=== PATIENT | male | born 1945 | race Caucasian/White ===

== ENCOUNTER → 2016-09-16 | Outpatient (CLI) | payer MEDICARE, BC ==
[~2016-09-16] MED LIST: ASPI81TA3 PO; CLON-412 PO; CLON2TAB3 PO; DICL100G37 TOP; DOCU-144 PO; DULO60CA6 PO; ELET20TA PO; FINA5TAB4 PO; FIORINAL PO; FLO1 PO; GLUC500T11 PO; IPRA30SP7 NASAL; LEVE500S9 PO; MULT-860 PO; NASO17 NASAL; OCUVITE PO; OMEG1CAP2 PO; OMEP20CA16 PO; PRED10TA PO; PROC25SU PR; PROP10DR2 OP; PROP15DR BOTH EYES; RAME8TAB10 PO; RANI150T9 PO; RANI300T PO; RESV50CA PO; TAMS0.4C2 PO; [UNRECOGNIZED DRUG - CODE] PO
--- NOTE | 2016-09-16 17:14 | RADRPT ---
PROCEDURE: Limited x-ray of both lower extremities. CLINICAL INDICATION: Bilateral leg pain. TECHNIQUE: Single frontal view of both lower extremities was obtained from the hips to the calves. COMPARISON: Bilateral hip x-rays dated 02/07/2016. FINDINGS: There is a right hip total arthroplasty which appears satisfactory. The left hip is grossly normal. There are moderate degenerative changes of both knees with right worse than left. IMPRESSION: 1. Right hip total arthroplasty. 2. Moderate degenerative changes of both knees with right worse than left. RPTAT: QQ .Butch Avila MD, MD Date Time Electronically viewed and signed by .Butch Avila MD, on 09/16/2016 17:14 .R/
== END | disposition home or self-care (01) ==
LOC: HKI 10:10
PROVIDERS: ATTEND Orthopaedic Surgery
DX: Z01.818 Encounter for other preprocedural examination (principal); G40.909 Epilepsy, unspecified, not intractable, without status epilepticus; G43.909 Migraine, unspecified, not intractable, without status migrainosus; G47.30 Sleep apnea, unspecified; Z86.13 Personal history of malaria; Z95.0 Presence of cardiac pacemaker; M17.0 Bilateral primary osteoarthritis of knee; Z96.641 Presence of right artificial hip joint
CPT/HCPCS: 77073; G0463

== ENCOUNTER 2016-09-24 07:33 | Inpatient (IN) | payer MEDICARE, BC ==
[2016-09-16 13:10] VITALS: BMI 31.9
[~2016-09-24] VITALS: Ht 180.3 cm; Wt 103.0 kg
[2016-09-24] VITALS (24 sets, daily range): BP systolic 126–165; BP diastolic 65–83; PULSE 60–74; RESP 12–18; Ht 180.3 cm; Wt 103.0 kg
[~2016-09-24 07:33] MED LIST changes: -CLON-412 PO; +DEXAMETHASONE 4 MG/ML 1 ML INJ ONE; -FIORINAL PO; -MULT-860 PO; -OMEP20CA16 PO; -PROP10DR2 OP; -[UNRECOGNIZED DRUG - CODE] PO
[2016-09-24] MEDS ORDERED: CELECOXIB 400 MG PO X1 DOSE PO ONE (08:00)
[2016-09-24] MEDS ORDERED: TRANEXAMIC ACID in SOD CHLORIDE 0.9% 100 ML ON CALL TO OR IV ONE (08:00)
[2016-09-24] MEDS ORDERED: BUPIVACAINE LIPOSOME/PF 266 MG/20 ML VIAL INFIL ONE (08:00)
[2016-09-24] MEDS ORDERED: traMADOL 50 MG TAB X 1 DOSE PO ONE (08:00)
[2016-09-24] MEDS ORDERED: TRANEXAMIC ACID in SOD CHLORIDE 0.9% 100 ML FOR INTRAOP IVPB ONE (08:00)
[2016-09-24] MEDS ORDERED: PREGABALIN 300 MG PO X1 PO ONE (08:00)
[2016-09-24] MEDS ORDERED: PAIN COCKTAIL-CEFUROXIME IRR ONE ×7 (08:00)
[2016-09-24] MEDS ORDERED: oxyCODONE (CR) 10 MG TAB [oxyCONTIN] X1 DOSE PO ONE (08:00)
[2016-09-24] MEDS ORDERED: CEFAZOLIN 2GM/50 ML (PMX) 50 ML X1 BEFORE INCISION IVPB ONE (08:00)
[2016-09-24] MEDS: LACTATED RINGER'S 1,000 ML IV SCH ×4 (09:17→21:22)
--- NOTE | 2016-09-24 09:49 | HPN ---
Date/Time of Note Date/Time of Note DATE: 09/24/16 TIME: 09:49 Interval H&P Admission Note Pt. seen H&P reviewed: No system changes No changes from H&P on 09/23/16 by LINA Dudley MD September 24, 2016 09:49
[2016-09-24] MEDS ORDERED: CEFAZOLIN 1 GM INJ ONE (10:15)
[2016-09-24] MEDS ORDERED: FENTAnyl 50 MCG/ML VIAL ONE (10:16)
[2016-09-24] MEDS ORDERED: BACITRACIN 50000 UNITS INJ ONE (10:16)
[2016-09-24] MEDS ORDERED: METOCLOPRAMIDE 10 MG INJ ONE (10:16)
[2016-09-24] MEDS ORDERED: MIDAZOLAM 1 MG/ML 2 ML INJ ONE (10:16)
[2016-09-24] MEDS ORDERED: DEXAMETHASONE 4 MG/ML 1 ML INJ ONE (10:16)
[2016-09-24] MEDS ORDERED: ETOMIDATE 20 MG INJ ONE (10:39)
[2016-09-24] MEDS ORDERED: VANCOMYCIN 1 GM INJ ONE (10:41)
[2016-09-24] MEDS ORDERED: POLYMYXIN B 500000 UNIT INJ ONE (10:41)
[2016-09-24] MEDS ORDERED: HYDROmorphONE (0.2 MG/ML) 10ML SYG IV PRN ×3 (11:30)
[2016-09-24] MEDS ORDERED: MEPERIDINE 25 MG INJ IV PRN (11:30)
[2016-09-24] MEDS ORDERED: DIPHENHYDRAMINE 50 MG INJ IV PRN (11:30)
[2016-09-24] MEDS ORDERED: ONDANSETRON 4 MG INJ IV PRN ×2 (11:30→13:30)
[2016-09-24] MEDS ORDERED: METOCLOPRAMIDE 10 MG INJ IV PRN (11:30)
[2016-09-24] MEDS ORDERED: EXPAREL NOTE (BUPIVICAINE LIPOSOMAL) XX SCH (12:30)
[2016-09-24] MEDS ORDERED: EPHEDrine SULFATE 50 MG/5 ML SYG ONE (13:02)
--- NOTE | 2016-09-24 13:11 | OPR ---
Date/Time of Note Date/Time of Note DATE: 09/24/16 TIME: 13:01 Operative Report Free Text/Dictation Dictation [id number] Procedure Date: September 24, 2016 Preoperative Diagnosis Left Knee OA Postoperative Diagnosis Same Operation Performed Left TKA Surgeon: LINA SPANN MD elementary assistant principal: YADI RODRIGUEZ PA-C Anesthesia: general, spinal Anesthesiologist: DONTAE CISNEROS MD Tourniquet Time: 71 minutes Estimated Blood Loss: 10 - 50 ml's Specimens Bone and soft tissue Tubes/Drains Hemovac x 1 Complications: None Pt Condition Post Procedure: stable Disposition: PACU LINA SPANN MD September 24, 2016 13:11
--- NOTE | 2016-09-24 13:19 | OPR ---
DATE OF OPERATION: 09/24/2016 PREOPERATIVE DIAGNOSIS: Left knee osteoarthritis. POSTOPERATIVE DIAGNOSIS: Left knee osteoarthritis. PROCEDURE PERFORMED: Left total knee arthroplasty. SURGEON: Lina Cortez MD BAR ROLLER: RHONA Moreira COMPONENTS USED: DePuy Attune size 8 femoral component, size 8 tibial baseplate, 6 mm polyethylene insert, 41 patellar button. ANESTHESIA: Spinal plus general endotracheal intubation, plus periarticular injection. ANESTHESIOLOGIST: Mayra Contreras MD TOURNIQUET TIME: 71 minutes. ESTIMATED BLOOD LOSS: 50 mL. INTRAVENOUS FLUIDS: 1800 mL crystalloid. SPECIMENS: Bone and soft tissue. DRAINS: Hemovac x1. COMPLICATIONS: None. DISPOSITION: The patient tolerated the procedure well and was taken to the recovery room in stable condition. INDICATIONS: The patient is a 71-year-old gentleman who has had progressive worsening pain in the l eft knee with radiographic evidence of severe osteoarthritis. He has failed nonsurgical means of tr eatment to control his pain including activity modifications, pain medications, intra-articular inje ctions and ambulatory assist devices. Despite these measures, he has had worsening pain and I felt would he benefit from a total knee arthroplasty. The risks, benefits, and alternatives of the procedure were explained in detail to the patient. I e xplained the risks of the surgery to include but not be limited to, bleeding and possible need for b lood transfusion; infection; pain; stiffness; neurovascular injury with possible numbness, weakness, and/or paralysis anywhere from the knee down to the toes; fracture; instability; dislocation; wear and/or loosening of the prosthesis and possible need for future revision; blood clots; pulmonary emb olism; and anesthetic complications such as heart attack, stroke, GI bleed, pneumonia, and/or . Ample time was allowed for the patient to ask questions, all of which were addressed and answered. The patient understood the risks involved and wished to proceed. Informed consent was signed prior to the procedure. PROCEDURE: The patient's left knee was initialed with a marking pen in the preoperative area to liliana ntify the correct operative site. The patient was brought to the operating room and transferred fro [facility] to the operating table where a spinal anesthetic was administered. The patien t was then anesthetized and intubated. A Pabon catheter was placed. A timeout was performed to con firm that the left leg was the correct operative site. The patient was given 2 g of Ancef within one hour prior to the procedure. A tourniquet was placed on the operative proximal thigh. The operati ve knee and lower extremity were prepped and draped in the usual sterile fashion. The operative low er extremity was elevated and exsanguinated with an Esmarch tourniquet. The proximal thigh tourniqu et was inflated to 300 mmHg. The knee was flexed. A midline incision was made and carried down through the subcutaneous tissue a nd fat with sharp dissection. Limited medial and lateral flaps were raised. A median parapatellar arthrotomy approach was performed. Synovial fluid was normal in color and consistency. The patella was everted and the knee flexed. There were severe tricompartmental osteoarthritic changes noted. A medial release was performed at the joint line to the midcoronal plane. The ACL and PCL and remn ants of the menisci were excised. The OrthAlign navigation device was then pinned into place on the distal femur and set to 0 degrees of varus/valgus and 3 degrees of flexion. The distal cutting blo ck was pinned into place and the oscillating saw was used to make the cut. The tibia was subluxed anteriorly. The tibial OrthAlign navigation device was then pinned into plac e such that the proximal portion of the guide was centered over the junction of the medial and middl e third of the tibial tubercle with the proximal probe placed at the posterior aspect of the ACL betty tprint. The guide was then set to 0 degrees varus/valgus and 3 degrees of posterior slope. The cut ting block was then pinned into place and the oscillating saw was used to make the cut. The tibia w as sized. The extension gap was checked and accommodated a 6 mm spacer block with the knee in full extension. There was no varus or valgus instability. At this point, the femur was sized with the posterior referencing guide. Two holes were drilled in 3 degrees of external rotation. The two holes were in line with the transepicondylar axis, perpendi cular to Sue's line, and in line with the tibial cutoff jig brought up with the knee flexed 90 degrees and tensed with 2 lamina spreaders, suggesting the femoral rotation was correct. The four- in-one cutting block was pinned into place. The anterior and posterior cuts and chamfer cuts were m tylor with the oscillating saw. The flexion gap was checked and accommodated the 6 mm spacer block at 90 degrees. There was no varus or valgus instability, suggesting the flexion and extension gaps wer e now equal. The central box was cut out on the femur. The tibia was drilled and punched in proper rotation. Tri al components were placed into position with a trial insert. The patella was cut from 27 mm down to 15 mm and sized. Three holes were drilled and the trial button placed in position. With all the t rials now in place, the knee was taken through range of motion and came to full extension as evidenc ed by the fact that with the foot on my abdomen and axial loading, there was no tendency for the kne e to flex. The knee was able to be flexed to 125 degrees with good patellar tracking with no latera l tilt or subluxation. At this point, I was satisfied with the overall range of motion, stability, and patellar tracking. The trials were removed. The real components were opened. Two bags of cement were mixed, one with and one without premixed antibiotic. The knee was irrigated with antibiotic saline and sucked dry. Once the cement was in a doughy stage, the real components were cemented into place. The knee was held in full extension, and the patellar component was held with a patellar clamp. All excess cemen t was removed with curettes. As the cement was hardening, the synovial/capsular layer was infiltrat ed with a mixture of 150 mg of 0.5% bupivacaine, 8 mg of Duramorph, 300 mcg of epinephrine, 30 mg of Toradol, 100 mcg of clonidine, 750 mg of cefuroxime and 86 mL of normal saline, followed by an inje ction of 266 mg of liposomal bupivacaine. A Hemovac drain was placed in the deep portion of the wound and brought out the anterolateral thigh. Once the cement was completely hardened, the trial liner was removed, and the real insert was open ed. The tourniquet was let down, and there was good hemostasis. The knee was then irrigated with a mixture of Betadine/saline and then antibiotic saline with pulsatile lavage. The real insert was i mpacted into the tibia and reduced onto to the femur. The arthrotomy was closed with a few interrupted #1 Ethibond in a vyelnj-dc-sqlaf fashion, and then closed in a watertight fashion with a running #2 Stratafix suture. Knee flexion was checked against gravity and came to 125 degrees. The subcutaneous layer was irrigated and closed with 2-0 Stratafi x, and then 3-0 Vicryl and then michelle on the skin. The wound was covered with an occlusive dressi ng, and secured with cast padding and a bias dressing. The drain was secured with 3-0 nylon. The sponge and needle counts were correct at the end of the case. The patient was then awakened, ex tubated, and taken to the recovery room in stable condition. Dictated By: LINA DOWNEY/NTS Conf#: [id number] DID#: [id number]
[2016-09-24 13:25] LABS: HEMATOCRIT 36.8 % (42.0-52.0); HEMOGLOBIN 12.4 g/dl (14.0-18.0)
[2016-09-24] MEDS ORDERED: NACL 0.9% 3 ML SYG IV SCH (13:30)
[2016-09-24] MEDS ORDERED: DIPHENHYDRAMINE 25 MG CAP PO PRN (13:30)
[2016-09-24] MEDS ORDERED: BISACODYL 10 MG SUPP PR PRN (13:30)
[2016-09-24] MEDS ORDERED: MAGNESIUM HYDROXIDE 30ML CUP PO PRN (13:30)
[2016-09-24] MEDS ORDERED: ASPIRIN (EC) 325 MG TAB PO ONE (13:30)
[2016-09-24] MEDS ORDERED: NA PHOSPHATE/BIPHOS 133 ML ENEMA PR PRN (13:30)
[2016-09-24] MEDS ORDERED: oxyCODONE 5 MG TAB PO PRN (13:30)
[2016-09-24] MEDS: CEFAZOLIN 2 GM/50 ML (PMX) 50 ML IVPB SCH ×2 (13:35→21:24)
[2016-09-24] MEDS: traMADol 50 MG TAB PO SCH ×2 (13:35→17:54)
[2016-09-24 13:43] LABS: POTASSIUM 3.4 mmol/L (3.5-5.1)
[2016-09-24 13:48] LABS: CALCIUM 8.2 mg/dl (8.4-10.2); CREATININE 0.85 mg/dl (0.61-1.24)
--- NOTE | 2016-09-24 13:50 | PN ---
Date/Time of Note Date/Time of Note DATE: 09/24/16 TIME: 13:47 Assessment/Plan Lines/Catheters IV Catheter Type (from Nrsg): Peripheral IV Zeng in Place (from Nrsg): Yes Assessment/Plan Assessment/Plan Stable in PACU, s/p left TKA -continue antibiotics -pain meds as needed -ASA/SCDs for DVT prophylaxis -OOB with PT -check AM labs -d/c zeng in AM XR of the left knee shows adequate alignment with no fractures or dislocations identified Subjective 24 Hr Interval Summary Stable in PACU. Moving all extremities. Denies pain. Exam/Review of Systems Vital Signs Vitals Vital Signs Date Time Temp Pulse Resp B/P Pulse Ox O2 Delivery O2 Flow Rate FiO2 09/24/16 13:24 67 12 146/76 94 Nasal Cannula 2.0 09/24/16 13:13 98.7 Exam Free Text/Dictation Hemovac: minimal Dressing dry Incision clean, dry, and intact without redness or drainage Thigh soft 5/5 Quadriceps, Tibialis Anterior, EHL, Gastroc, Soleus, Peroneals Normal sensation Palpable DT/PT, CR <2 sec No distal edema Results Result Diagram: 09/24/16 1317 09/24/16 1317 YADI RODRIGUEZ PA-C September 24, 2016 13:50
--- NOTE | 2016-09-24 13:53 | RADRPT ---
PROCEDURE: Left knee x-ray CLINICAL INDICATION: Knee pain TECHNIQUE: Two views of the left knee were obtained. COMPARISON: None FINDINGS: The patient is status post total knee replacement . There are postsurgical changes in the subcutane ous soft tissues. There is a surgical drain in place. There is normal mineralization. No acute fracture or dislocation is seen. RPTAT: AA IMPRESSION: Postsurgical changes of the knee status post knee replacement. .Dinh Ferro MD, MD Date Time Electronically viewed and signed by .Dinh Ferro MD, MD on 09/24/2016 13:53 .S/
[2016-09-24] MEDS: HYDROmorphONE 1 MG/ML SYG IV PRN (15:41)
[2016-09-24] MEDS ORDERED: TRANEXAMIC ACID 1,030 MG in SOD CHLORIDE 0.9% 100 ML IVPB ONE ×2 (16:30→19:30)
[2016-09-24] MEDS ORDERED: POTASSIUM CHLORIDE (SR) 20 MEQ TAB PO ONE (17:00)
--- NOTE | 2016-09-24 17:32 | CONS ---
DATE OF ADMISSION: 09/24/2016 DATE OF CONSULTATION: 09/24/2016 TYPE OF CONSULTATION: Postoperative medical consultation. Thank you very much for allowing me to evaluate this 71-year-old male who just underwent left knee a rthroplasty. HISTORICAL EVENTS: As you well know, this patient has had progressive disabling pain involving his left knee and elected to proceed with surgery today. He denies postoperatively cough, wheezing, mati rtness of breath, nausea, vomiting, abdominal or chest pain. PAST MEDICAL HISTORY INCLUDES: 1. Benign prostatic hypertrophy. 2. History of migraines. 3. History of cervical radiculopathy. 4. History of seizure disorder. 5. History of orthostatic hypotension and related syncope. 6. No history of coronary artery disease undergoing cardiac treadmill study prior to this surgery. PAST SURGICAL HISTORY: 1. Right hip replacement. 2. Surgery for a left wrist fracture. 3. Lumbar laminectomy. 4. Repair of a rotator cuff. 5. Malignant melanoma removal from the right shoulder. ALLERGIES OR INTOLERANCES: Include: 1. CRESTOR. 2. VICODIN. 3. TALWIN 4. INDERAL. 4. TETRACYCLINE. SOCIAL HISTORY: He is a nonsmoker, rarely drinks. He was a registered nurse. MEDICATIONS: 1. Atrovent spray 2 in each nostril twice a day. 2. Nasonex 2 sprays in each nostril. 3. Zantac 150 in the morning, 300 at night. 4. Colace 100 t.i.d. 5. Keppra. 1250 b.i.d. 5. Klonopin 2 mg b.i.d. p.r.n. 6. Rozerem 8 mg at bedtime p.r.n. 7. Flomax 0.4. 8. Cymbalta 60 mg. 9. Ocuvite 1 per day. 10. Florinef 0.1 b.i.d. 11. Centrum Silver. 12. Aspirin. 13. Finasteride 5 mg. PHYSICAL EXAMINATION: GENERAL: Overweight male in no acute distress. VITAL SIGNS: BP 122/80, pulse 70, respirations are 20, he was afebrile. EYES: Extraocular muscles were full. NOSE, MOUTH, AND THROAT: Normal. NECK: Supple. There was no jugular venous distention, thyroid enlargement or adenopathy. Carotids 2+, no bruits. LUNGS: Clear. HEART: Rhythm regular, no murmur. No third or fourth sound. ABDOMEN: Nontender. Liver and spleen were not palpable. No masses or tenderness were noted. EXTREMITIES: No edema. Calves nontender. NEUROLOGIC: No lateralizing motor weakness. IMPRESSION: 1. Stable postop left knee replacement. 2. History of seizure disorder. Keppra will be continued. 3. History of prostatism, Flomax and finasteride will continue. Will observe closely for significa nt postvoid residuals. 4. We will evaluate daily for signs and symptoms of thromboembolic disease despite an appropriate d eep venous thrombosis prophylaxis. Dictated By: ДМИТРИЙ MCCARTNEY MD MR/CARLO Conf#: [id number] DID#: [id number] CC: LINA SPANN MD;*EndCC*
[2016-09-24] MEDS: PANTOPRAZOLE (EC) 40 MG TAB PO SCH (17:53)
[2016-09-24] MEDS: oxyCODONE 5 MG TAB PO PRN (20:13)
[2016-09-24] MEDS: PREGABALIN 50 MG CAP PO SCH (21:20)
[2016-09-24] MEDS: DOCUSATE SODIUM 100 MG CAP PO SCH (21:20)
[2016-09-24] MEDS: TAMSULOSIN (SR) 0.4 MG CAP PO SCH (21:20)
--- NOTE | 2016-09-24 21:39 | PDOCDIS ---
Discharge Instructions DIAGNOSIS Discharge Diagnosis: s/p left TKA CONDITION Patient Condition: Good HOME CARE INSTRUCTIONS: Diet Instructions: Regular ACTIVITY: Activity Restrictions: Slowly Increase Activity Rest between Activity Avoid heavy lifting Do not operate Machinery Do not operate Power Tool Avoid Heavy Housework Keep Limb Elevated Bathing Restrictions: Shower FOLLOW UP/APPOINTMENTS Appointments follow up in the office on 10/07/16 OTHER ORDERS: Other Orders: S/P TKA Physical Therapy: Three times per week at home x 2 weeks Daily in Rehab/SNF WB STATUS: WBAT 1. Strengthening exercises for both upper and un-operated lower extremities. 2. Gait training with front wheeled walker 3. Active range of motion exercises to operative knee. 4. When not working on knee range of motion exercises, distal towel roll under operative ankle/distal calf to promote full extension. 5. DO NOT PUT ANYTHING BEHIND OPERATIVE KNEE!!! 6. Quadriceps and hamstring strengthening. 7. May switch to cane in contra lateral hand 6 weeks after surgery. 8. Physical Therapy can open case if nursing is not available. 9. Use Ice Machine as instructed from date of surgery while at rest 3X/day. 10. Patient requires mobile SCDs to reduce risk of developing DVT following TKA. Patient will use the mobile SCDs for 30 days postoperatively. Bathing assistance by home health aide twice weekly if Medicare patient. Occupational Therapy: Evaluation for assistive devices and ADL training. Wound Care: Keep incision dry & covered with Tegaderm until first visit with Dr. Cortez Anticoagulation Orders: Enteric Coated Aspirin 325 mg po bid x 6 weeks from date of surgery Follow-up:Call for an appointment with Dr. Cortez in 1 week after discharged from hospital at DME Orders: ANANT, 3-in-1 Commode, Polar ice machine, Mobile SCDs YADI RODRIGUEZ PA-C September 24, 2016 21:38
[2016-09-24] MEDS ORDERED: PANT40TA4 PO (21:41)
[2016-09-24] MEDS ORDERED: OXYC-481 PO (21:41)
[2016-09-24] MEDS ORDERED: ASPI325T32 PO (21:41)
[2016-09-24] MEDS ORDERED: PREG50CA PO (21:41)
[2016-09-24] MEDS ORDERED: TRAM50TA2 PO (21:41)
[2016-09-24] MEDS: LEVETIRACETAM (100 MG/ML) 5ML CUP PO SCH (22:44)
[2016-09-24] MEDS: clonAZEPAM 0.5 MG TAB PO PRN (22:53)
[2016-09-25] MEDS: traMADol 50 MG TAB PO SCH ×4 (00:36→17:58)
[2016-09-25] MEDS: HYDROmorphONE 1 MG/ML SYG IV PRN ×2 (01:27→06:26)
[2016-09-25] MEDS: LACTATED RINGER'S 1,000 ML IV SCH ×5 (04:00→21:02)
[2016-09-25 05:20] LABS: HEMATOCRIT 32.8 % (42.0-52.0); HEMOGLOBIN 11.2 g/dl (14.0-18.0)
[2016-09-25] MEDS: PANTOPRAZOLE (EC) 40 MG TAB PO SCH ×2 (05:32→17:58)
[2016-09-25] MEDS: CEFAZOLIN 2 GM/50 ML (PMX) 50 ML IVPB SCH (05:37)
[2016-09-25 05:40] LABS: PHOSPHORUS 4.3 mg/dl (2.5-4.9)
[2016-09-25 05:48] LABS: POTASSIUM 4.2 mmol/L (3.5-5.1)
[2016-09-25 05:51] LABS: CALCIUM 8.7 mg/dl (8.4-10.2); CREATININE 0.78 mg/dl (0.61-1.24)
--- NOTE | 2016-09-25 06:35 | PREOPHP ---
DATE OF ADMISSION: 09/24/2016 CHIEF COMPLAINT: Preoperative history and physical and medical clearance for left knee arthroplasty . PRESENT MEDICAL HISTORY: This is a 71-year-old male who is here for clearance prior to th e above surgical procedure. The patient denies any history of chest pain, shortness of breath, irre gular heartbeat, syncope or lightheadedness. He has no recent fever, chills, rales, nausea or vomit ing, has no diarrhea. He has no chest pains. PAST MEDICAL HISTORY: Pertinent for: 1. Benign prostatic hypertrophy treated with medication. 2. History of migraines with aura treated with Relpax and Fiorinal. 3. History of cervical radiculopathy secondary to cervical disk disease. The patient has received several epidural injections as well. 4. History of malaria, Vivax in 1967. 5. History of epilepsy without history of seizures. 6. He had rheumatic fever as a child. 7. He has also had orthostatic hypotension resulting in multiple syncopal episodes. This has been treated with Florinef, and patient has been asymptomatic since. The patient does not have a history of hypertension, cerebral ____ disease, thyroid disease, diabete s mellitus. ALLERGIES: HE DOES HAVE ALLERGIES TO: 1. CRESTOR. 2. ____. 3. VICODIN. 4. TALWIN. 5. INDERAL. 6. ____. 7. TETRACYCLINE. SOCIAL HISTORY: He is a nonsmoker, rare social drinker. 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 SURGICAL HISTORY: Includes status post right hip replacement, status post left wrist fracture, lumb ar laminectomy with some epidural injections, status post ____ and malignant melanoma and status pos t right shoulder rotator cuff repair. MEDICATIONS: 1. Keppra ____ b.i.d. for seizure prevention. 2. Fioricet p.r.n. 3. Relpax p.r.n. 4. Flomax for urinary flow. 5. Proscar for benign prostatic hypertrophy. 6. Atrovent nasal spray. 7. Nasonex spray. 8. Zantac 150 mg in mornings, 300 mg at night for reflux esophagitis. 9. Klonopin 2 mg b.i.d. for anxiety. 10. Sonata 10 mg at bedtime for sleep, although that has been discontinued. 11. Flomax 0.4 mg at bedtime for benign prostatic hypertrophy. 12. The patient has a history of being diagnosed with sleep apnea, was on CPAP, could not tolerate it and presently is not taking anything for his condition. 13. Cymbalta 600 mg daily. 14. Florinef 0.1 mg b.i.d. 15. Melatonin 80 mg at bedtime. In addition, he also has a pacemaker due to sick sinus syndrome. Finally, he also is status post Ba rrett esophagitis. REVIEW OF SYSTEMS: GASTROINTESTINAL: Without nausea or vomiting, abdominal pain, diarrhea, constipation. GENITOURINARY: Without dysuria, frequency ____ or incontinence. CARDIAC: No chest pain, shortness of breath ____ heartbeat or lightheadedness. NEUROLOGIC: Without history of seizures, migraines, tremors ____. CONSTITUTIONAL: Without fever, chills or rigors. PHYSICAL EXAMINATION: VITAL SIGNS: Blood pressure was 130/80. GENERAL APPEARANCE: This is a moderately obese 71-year-old male, alert and oriented x3. HEENT: Head atraumatic. Conjunctivae pink. Sclerae nonicteric. Pupils equal and reactive. Fundi were not visualized. NECK: Supple. Oral cavity was normal. No masses palpable. Lymph nodes without adenopathy. Trach ea midline. LUNGS: Clear to auscultation, percussion. CARDIAC: Regular sinus rhythm without murmurs or gallops. ABDOMEN: Soft, nontender. No masses palpable. Bowel sounds are normal. FLANKS: No CVA tenderness. SPINE: No tenderness on palpation. SKIN: Dry and warm. The patient does have a history of lumbar laminectomy at L2-S1 and has a history of lumbar radiculop athy as mentioned. ASSESSMENT: This is a 71-year-old male with the above medical conditions but without increased surg ical risk factors and is clinically stable and is cleared for his surgery. Nguyễn Adamson MD dictated Pre-Op History for Del Spann MD Dictated By: DEL SPANN MD EZ/NTS Conf#: [id number] DID#: [id number]
--- NOTE | 2016-09-25 07:28 | CONS ---
Date/Time of Note Date/Time of Note DATE: 09/25/16 TIME: 07:26 Assessment/Plan Assessment/Plan Additional Assessment/Plan 1. Stable postop left knee replacement. 2. History of seizure disorder, med rev 3. History of prostatism, Flomax and finasteride, voided post zeng removal, will check post void residual 4. Hx sick sinus syndrome and s/p pacemaker placement Consultation Date/Type/Reason Admit Date/Time September 24, 2016 at 07:33 Initial Consult Date Detailed Summary Respiratory: No cough, No shortness of breath Cardiovascular: No chest pain Gastrointestinal: no complaints, other (zeng just removed) Musculoskeletal: bone/joint pain (mild left knee pain) Exam/Review of Systems Vital Signs Vitals Vital Signs Date Time Temp Pulse Resp B/P Pulse Ox O2 Delivery O2 Flow Rate FiO2 09/24/16 23:35 98.4 64 18 135/80 97 09/24/16 17:30 Nasal Cannula 2.0 Intake and Output 09/24/16 09/24/16 09/25/16 15:00 23:00 07:00 Intake Total 1900 ml 1480.3 ml 1240 ml Output Total 470 ml 700 ml 1350 ml Balance 1430 ml 780.3 ml -110 ml Exam Neck: No jvd Respiratory: clear to auscultation Cardiovascular: regular rate and rhythm Gastrointestinal: soft Extremities: No edema (and no calf tend bilat) Results Result Diagram: 09/25/16 0433 09/25/16 0433 Results 24 hrs Laboratory Tests Test 09/24/16 13:17 09/25/16 04:32 09/25/16 04:33 Hemoglobin 12.4 L 11.2 L Hematocrit 36.8 L 32.8 L Sodium Level 142 142 Potassium Level 3.4 L 4.2 Chloride Level 107 105 Carbon Dioxide Level 25 29 Anion Gap 13 12 Blood Urea Nitrogen 9 9 Creatinine 0.85 0.78 Glucose Level 182 95 # Calcium Level 8.2 L 8.7 Phosphorus Level 4.3 Magnesium Level 2.0 Medications Medications Current Medications Lactated Ringer's (Lr) 1,000 ml @ 100 mls/hr Q10H IV Last administered on 09/24t 09:17; Admin Dose 100 MLS/HR; Start 09/24/16 at 08:00 Miscellaneous Information 1 ea NOTE XX ; Start 09/24/16 at 12:30; Stop 09/28/16 at 12:29 Duloxetine HCl (Cymbalta) 60 mg QAM PO ; Start 09/25/16 at 09:00 Finasteride (Proscar) 5 mg DAILY PO ; Start 09/25/16 at 09:00 Levetiracetam (Keppra Liquid) 1,250 mg BID PO Last administered on 09/24/16 22 :44; Admin Dose 1,250 MG; Start 09/24/16 at 21:00 Tamsulosin HCl 0.4 mg 0.4 mg HS PO Last administered on 09/24/16 21:20; Admin Dose 0.4 MG; Start 09/24/16 at 21:00 Lactated Ringer's (Lr) 1,000 ml @ 125 mls/hr Q8H IV Last administered on 05:34; Admin Dose 125 MLS/HR; Start 09/24/16 at 13:02 Tramadol HCl (Ultram) 50 mg Q6 PO Last administered on 09/25/16 05:32; Admin Dose 50 MG; Start 09/24/16 at 12:00; Stop 09/27/16 at 11:59 Oxycodone HCl (Roxicodone) 5 mg Q4H PRN PO PAIN LEVEL 1-3; Start 09/24/16 at 13 :30 Oxycodone HCl (Roxicodone) 10 mg Q4H PRN PO PAIN LEVEL 4-7 Last administered on 09/24/16 20:13; Admin Dose 10 MG; Start 09/24/16 at 13:30 Hydromorphone HCl (Dilaudid) 1 mg Q3H PRN IV PAIN LEVEL 8-10 Last administered on 09/25/16 06:26; Admin Dose 1 MG; Start 09/24/16 at 13:30 Ondansetron HCl (Zofran Inj) 4 mg Q6H PRN IV NAUSEA AND/OR VOMITING; Start at 13:30 Bisacodyl (Dulcolax Supp) 10 mg Q12H PRN [place] CONSTIPATION; Start 09/24/16 at 13: 30 Magnesium Hydroxide (Milk Of Mag) 30 ml BID PRN PO CONSTIPATION; Start at 13:30 Sodium Biphosphate/ Sodium Phosphate (Fleet Enema) 133 ml DAILY PRN [place] CONSTIPATION; Start 09/24/16 at 13:30 Docusate Sodium (Colace) 100 mg BID PO Last administered on 09/24/16 21:20; Admin Dose 100 MG; Start 09/24/16 at 21:00 Diphenhydramine HCl (Benadryl) 25 mg Q6H PRN PO PRURITUS Last administered on 22:53; Admin Dose 25 MG; Start 09/24/16 at 13:30 Aspirin (Ecotrin) 325 mg BID PO ; Start 09/25/16 at 09:00 Pantoprazole (Protonix Tab) 40 mg BID@18 PO Last administered on 09/25/16 05:32; Admin Dose 40 MG; Start 09/24/16 at 18:00 Pregabalin (Lyrica) 50 mg BID PO Last administered on 09/24/16 21:20; Admin Dose 50 MG; Start 09/24/16 at 21:00 Clonazepam (Klonopin) 2 mg BID PRN PO ANXIETY Last administered on 09/24/16 22 :53; Admin Dose 2 MG; Start 09/24/16 at 17:00 ДМИТРИЙ MCCARTNEY MD September 25, 2016 07:28
[2016-09-25] MEDS ORDERED: PATIENT'S OWN MEDICATION PO PRN (07:30)
[2016-09-25] MEDS ORDERED: RELPAX 40 MG PO PRN (08:00)
[2016-09-25 08:02] LABS: ADD UMIC YES; URINE BILIRUBIN (Dip) NEGATIVE (NEGATIVE); URINE BLOOD (Dip) 1+ (NEGATIVE); URINE COLOR LT. YELLOW (YELLOW); URINE GLUCOSE (Dip) NEGATIVE (NEGATIVE); URINE KETONES (Dip) NEGATIVE (NEGATIVE); URINE LEUKOCYTE ESTERASE (Dip) NEGATIVE (NEGATIVE); URINE NITRITE (Dip) NEGATIVE (NEGATIVE); URINE TOTAL PROTEIN (Dip) NEGATIVE (NEGATIVE); URINE UROBILINOGEN (Dip) 0.2 E.U./dL (0.1-1.0)
[2016-09-25 08:18] VITALS: BP 140/69; RESP 18
--- NOTE | 2016-09-25 08:40 | PN ---
Date/Time of Note Date/Time of Note DATE: 09/25/16 TIME: 08:38 Assessment/Plan Lines/Catheters IV Catheter Type (from Nrsg): Peripheral IV Pabon in Place (from Nrsg): Yes Assessment/Plan Assessment/Plan Stable POD #1, s/p left TKA -discontinue abx -pain meds as needed -ASA/SCDs for DVT prophylaxis -OOB with PT -drain removed -check AM labs -will plan for discharge home when stable Subjective 24 Hr Interval Summary No acute overnight events. Denies significant pain. Did not start PT yet. VSS, afebrile. Will plan to tentatively go home upon discharge Exam/Review of Systems Vital Signs Vitals Vital Signs Date Time Temp Pulse Resp B/P Pulse Ox O2 Delivery O2 Flow Rate FiO2 09/25/16 08:18 98.0 67 18 140/69 96 09/24/16 17:30 Nasal Cannula 2.0 Intake and Output 09/24/16 09/24/16 09/25/16 15:00 23:00 07:00 Intake Total 1900 ml 1480.3 ml 1240 ml Output Total 470 ml 700 ml 1350 ml Balance 1430 ml 780.3 ml -110 ml Exam Free Text/Dictation Hemovac: 270cc Dressing dry Incision clean, dry, and intact without redness or drainage Thigh soft 5/5 Quadriceps, Tibialis Anterior, EHL, Gastroc, Soleus, Peroneals Normal sensation Palpable DT/PT, CR <2 sec No distal edema Results Result Diagram: 09/25/16 0433 09/25/16 0433 YADI RODRIGUEZ PA-C September 25, 2016 08:40
[2016-09-25] MEDS: LEVETIRACETAM (100 MG/ML) 5ML CUP PO SCH (08:47)
[2016-09-25] MEDS: DOCUSATE SODIUM 100 MG CAP PO SCH ×2 (08:47→20:51)
[2016-09-25] MEDS: DULOXETINE 30 MG CAP DR PO SCH (08:47)
[2016-09-25] MEDS: FINASTERIDE 5 MG TAB PO SCH (08:47)
[2016-09-25] MEDS: ASPIRIN (EC) 325 MG TAB PO SCH ×2 (08:47→20:49)
[2016-09-25] MEDS: PREGABALIN 50 MG CAP PO SCH ×2 (08:50→21:00)
[2016-09-25] MEDS: oxyCODONE 5 MG TAB PO PRN ×4 (08:51→21:01)
[2016-09-25] MEDS: [UNRECOGNIZED DRUG - REMARK] XX SCH ×2 (12:00→20:00)
--- NOTE | 2016-09-25 14:19 | PN ---
Date/Time of Note Date/Time of Note DATE: 09/25/16 TIME: 14:17 Assessment/Plan VTE Prophylaxis VTE Prophylaxis Intervention: ambulation Lines/Catheters IV Catheter Type (from Nrsg): Peripheral IV Urinary Cath still in place: No Subjective 24 Hr Interval Summary Free Text/Dictation anesthesia note: A 71 year male /p LTKR under GA and spinal POD #1 is doing well, no itching, n/v , headache, back pain or inflammation. pain is controlled. care per surgery team Exam/Review of Systems Vital Signs Vitals Vital Signs Date Time Temp Pulse Resp B/P Pulse Ox O2 Delivery O2 Flow Rate FiO2 09/25/16 08:18 98.0 67 18 140/69 96 09/24/16 17:30 Nasal Cannula 2.0 Intake and Output 09/24/16 09/24/16 09/25/16 15:00 23:00 07:00 Intake Total 1900 ml 1480.3 ml 1240 ml Output Total 470 ml 700 ml 1350 ml Balance 1430 ml 780.3 ml -110 ml Results Result Diagram: 09/25/16 0433 09/25/16 0433 Results 24 hrs Laboratory Tests Test 09/25/16 04:32 09/25/16 04:33 09/25/16 06:00 Phosphorus Level 4.3 Magnesium Level 2.0 Hemoglobin 11.2 L Hematocrit 32.8 L Sodium Level 142 Potassium Level 4.2 Chloride Level 105 Carbon Dioxide Level 29 Anion Gap 12 Blood Urea Nitrogen 9 Creatinine 0.78 Glucose Level 95 # Calcium Level 8.7 Urine Color LT. YELLOW Urine Clarity CLEAR Urine pH 6.0 Urine Specific [place] 1.025 Urine Ketones NEGATIVE Urine Nitrite NEGATIVE Urine Bilirubin NEGATIVE Urine Urobilinogen 0.2 E.U./dL Urine Leukocyte Esterase NEGATIVE Urine Microscopic RBC 2-5 Urine Microscopic WBC NONE SEEN Urine Hemoglobin 1+ H Urine Glucose NEGATIVE Urine Total Protein NEGATIVE Medications Medications Current Medications Lactated Ringer's (Lr) 1,000 ml @ 100 mls/hr Q10H IV Last administered on 09/24 09:17; Admin Dose 100 MLS/HR; Start 09/24/16 at 08:00 Miscellaneous Information 1 ea NOTE XX ; Start 09/24/16 at 12:30; Stop 09/28/16 at 12:29 Duloxetine HCl (Cymbalta) 60 mg QAM PO Last administered on 09/25/16 08:47; Admin Dose 60 MG; Start 09/25/16 at 09:00 Finasteride (Proscar) 5 mg DAILY PO Last administered on 09/25/16 08:47; Admin Dose 5 MG; Start 09/25/16 at 09:00 Tamsulosin HCl 0.4 mg 0.4 mg HS PO Last administered on 09/24/16 21:20; Admin Dose 0.4 MG; Start 09/24/16 at 21:00 Lactated Ringer's (Lr) 1,000 ml @ 125 mls/hr Q8H IV Last administered on 05:34; Admin Dose 125 MLS/HR; Start 09/24/16 at 13:02 Tramadol HCl (Ultram) 50 mg Q6 PO Last administered on 09/25/16 12:29; Admin Dose 50 MG; Start 09/24/16 at 12:00; Stop 09/27/16 at 11:59 Oxycodone HCl (Roxicodone) 5 mg Q4H PRN PO PAIN LEVEL 1-3; Start 09/24/16 at 13 :30 Oxycodone HCl (Roxicodone) 10 mg Q4H PRN PO PAIN LEVEL 4-7 Last administered on 09/25/16 13:07; Admin Dose 10 MG; Start 09/24/16 at 13:30 Hydromorphone HCl (Dilaudid) 1 mg Q3H PRN IV PAIN LEVEL 8-10 Last administered on 09/25/16 06:26; Admin Dose 1 MG; Start 09/24/16 at 13:30 Ondansetron HCl (Zofran Inj) 4 mg Q6H PRN IV NAUSEA AND/OR VOMITING; Start at 13:30 Bisacodyl (Dulcolax Supp) 10 mg Q12H PRN [place] CONSTIPATION; Start 09/24/16 at 13: 30 Magnesium Hydroxide (Milk Of Mag) 30 ml BID PRN PO CONSTIPATION; Start at 13:30 Sodium Biphosphate/ Sodium Phosphate (Fleet Enema) 133 ml DAILY PRN [place] CONSTIPATION; Start 09/24/16 at 13:30 Docusate Sodium (Colace) 100 mg BID PO Last administered on 09/25/16 08:47; Admin Dose 100 MG; Start 09/24/16 at 21:00 Diphenhydramine HCl (Benadryl) 25 mg Q6H PRN PO PRURITUS Last administered on 22:53; Admin Dose 25 MG; Start 09/24/16 at 13:30 Aspirin (Ecotrin) 325 mg BID PO Last administered on 09/25/16 08:47; Admin Dose 325 MG; Start 09/25/16 at 09:00 Pantoprazole (Protonix Tab) 40 mg BID@18 PO Last administered on 09/25/16 05:32; Admin Dose 40 MG; Start 09/24/16 at 18:00 Pregabalin (Lyrica) 50 mg BID PO Last administered on 09/25/16 08:50; Admin Dose 50 MG; Start 09/24/16 at 21:00 Clonazepam (Klonopin) 2 mg BID PRN PO ANXIETY Last administered on 09/24/16 22 :53; Admin Dose 2 MG; Start 09/24/16 at 17:00 Ramelteon (Rozerem) 8 mg QHS PO ; Start 09/25/16 at 21:00; Status UNV Levetiracetam (Keppra) 750 mg BID PO ; Start 09/25/16 at 21:00 Levetiracetam (Keppra) 500 mg BID PO ; Start 09/25/16 at 21:00 Miscellaneous Information (*Order Clarification Bulletin) MEDICATION REQUIRES CLARIFICATI... Q8H XX ; Start 09/25/16 at 12:00 DONTAE CISNEROS MD September 25, 2016 14:19
[2016-09-25 20:30] VITALS: BP 145/67; RESP 20
[2016-09-25] MEDS: LEVETIRACETAM 750 MG TAB PO SCH (20:49)
[2016-09-25] MEDS: LEVETIRACETAM 500 MG TAB PO SCH (20:49)
[2016-09-25] MEDS: TAMSULOSIN (SR) 0.4 MG CAP PO SCH (20:51)
[2016-09-25] MEDS: clonAZEPAM 0.5 MG TAB PO PRN (21:00)
[2016-09-25] MEDS ORDERED: PATIENT'S OWN MEDICATION PO SCH (21:00)
[2016-09-25] MEDS ORDERED: RAMELTEON 8 MG TAB PO SCH ×2 (21:00)
[2016-09-26] MEDS: [UNRECOGNIZED DRUG - REMARK] XX SCH ×3 (04:00→20:00)
[2016-09-26] MEDS: LACTATED RINGER'S 1,000 ML IV SCH ×6 (05:02→21:02)
[2016-09-26 05:44] LABS: HEMOGLOBIN 11.2 g/dl (14.0-18.0)
[2016-09-26 06:07] LABS: POTASSIUM 3.7 mmol/L (3.5-5.1)
[2016-09-26 06:09] LABS: CREATININE 0.79 mg/dl (0.61-1.24)
[2016-09-26 06:10] LABS: CALCIUM 8.3 mg/dl (8.4-10.2)
[2016-09-26] MEDS: PANTOPRAZOLE (EC) 40 MG TAB PO SCH ×2 (06:14→18:12)
[2016-09-26] MEDS: traMADol 50 MG TAB PO SCH ×4 (06:15→18:12)
[2016-09-26 07:00] VITALS: BP 128/59; RESP 20
[2016-09-26] MEDS: oxyCODONE 5 MG TAB PO PRN ×4 (07:54→19:36)
[2016-09-26] MEDS: FINASTERIDE 5 MG TAB PO SCH (07:55)
[2016-09-26] MEDS: PREGABALIN 50 MG CAP PO SCH ×2 (07:55→21:07)
[2016-09-26] MEDS: DULOXETINE 30 MG CAP DR PO SCH (07:55)
[2016-09-26] MEDS: ASPIRIN (EC) 325 MG TAB PO SCH ×2 (07:56→21:05)
[2016-09-26] MEDS: LEVETIRACETAM 750 MG TAB PO SCH ×2 (07:56→21:06)
[2016-09-26] MEDS: DOCUSATE SODIUM 100 MG CAP PO SCH ×2 (07:56→21:06)
[2016-09-26] MEDS: LEVETIRACETAM 500 MG TAB PO SCH ×2 (07:56→21:06)
--- NOTE | 2016-09-26 09:21 | PN ---
Date/Time of Note Date/Time of Note DATE: 09/26/16 TIME: 09:20 Assessment/Plan Lines/Catheters IV Catheter Type (from Nrsg): Peripheral IV Pabon in Place (from Nrsg): No Assessment/Plan Assessment/Plan POD # 2. Stable. -OOB with PT -Pain meds -E.C. ASA 325 mg po bid plus bilateral LE SCDs -Possible d/c to home tomorrow Subjective 24 Hr Interval Summary Having some more pain today. Walked with PT yesterday. Exam/Review of Systems Vital Signs Vitals Vital Signs Date Time Temp Pulse Resp B/P Pulse Ox O2 Delivery O2 Flow Rate FiO2 09/26/16 07:00 98.8 79 20 128/59 98 09/24/16 17:30 Nasal Cannula 2.0 Intake and Output 09/25/16 09/25/16 09/26/16 15:00 23:00 07:00 Intake Total 2280 ml Output Total 2050 ml Balance 230 ml Exam Free Text/Dictation Dressing dry Incision clean, dry, and intact without redness or drainage / Tibialis Anterior, EHL, Gastroc Soleus, Peroneals Normal sensation Palpable DP/PT, CR < 2 Sec No distal edema Results Result Diagram: 09/26/16 0446 09/26/16 044 LINA SPANN MD September 26, 2016 09:21
--- NOTE | 2016-09-26 16:00 | CONS ---
Date/Time of Note Date/Time of Note DATE: 09/26/16 TIME: 15:56 Consult Date/Type/Reason Admit Date/Time September 24, 2016 at 07:33 Initial Consult Date 09/24/16 Type of Consultation: Medicine Reason for Consultation Migraines, Sz d/o Subjective Patient not progressing well with PT per his report. Pain is limiting him. Denies fevers, chills, nausea, vomiting, diarrhea, constipation, chest pain, sob , cough, dysuria. Did just have a migraine, he treated with home meds. Resolved. Objective Vital Signs Date Time Temp Pulse Resp B/P Pulse Ox O2 Delivery O2 Flow Rate FiO2 09/26/16 07:00 98.8 79 20 128/59 98 09/24/16 17:30 Nasal Cannula 2.0 Intake and Output 09/25/16 09/25/16 09/26/16 15:00 23:00 07:00 Intake Total 2280 ml Output Total 2050 ml Balance 230 ml Exam Gen-NAD HEENT-op clear, mmm, CV-rrr, nml s1/s2, no m/r/g Pulm-CTAB, no w/r/r Abd-soft, nt/nd, +bs Ext-no c/c/e Results/Medications Result Diagram: 09/26/16 0446 09/26/16 0446 Results 24 hrs Laboratory Tests Test 09/26/16 04:46 Hemoglobin 11.2 L Hematocrit 33.0 L Sodium Level 138 Potassium Level 3.7 Chloride Level 99 Carbon Dioxide Level 29 Anion Gap 14 Blood Urea Nitrogen 7 Creatinine 0.79 Glucose Level 113 Calcium Level 8.3 L Medications Current Medications Lactated Ringer's (Lr) 1,000 ml @ 100 mls/hr Q10H IV Last administered on 09/24 09:17; Admin Dose 100 MLS/HR; Start 09/24/16 at 08:00 Miscellaneous Information 1 ea NOTE XX ; Start 09/24/16 at 12:30; Stop 09/28/16 at 12:29 Duloxetine HCl (Cymbalta) 60 mg QAM PO Last administered on 09/26/16 07:55; Admin Dose 60 MG; Start 09/25/16 at 09:00 Finasteride (Proscar) 5 mg DAILY PO Last administered on 09/26/16 07:55; Admin Dose 5 MG; Start 09/25/16 at 09:00 Tamsulosin HCl 0.4 mg 0.4 mg HS PO Last administered on 09/25/16 20:51; Admin Dose 0.4 MG; Start 09/24/16 at 21:00 Lactated Ringer's (Lr) 1,000 ml @ 125 mls/hr Q8H IV Last administered on 05:34; Admin Dose 125 MLS/HR; Start 09/24/16 at 13:02 Tramadol HCl (Ultram) 50 mg Q6 PO Last administered on 09/26/16 11:47; Admin Dose 50 MG; Start 09/24/16 at 12:00; Stop 09/27/16 at 11:59 Oxycodone HCl (Roxicodone) 5 mg Q4H PRN PO PAIN LEVEL 1-3; Start 09/24/16 at 13 :30 Oxycodone HCl (Roxicodone) 10 mg Q4H PRN PO PAIN LEVEL 4-7 Last administered on 09/26/16 15:49; Admin Dose 10 MG; Start 09/24/16 at 13:30 Hydromorphone HCl (Dilaudid) 1 mg Q3H PRN IV PAIN LEVEL 8-10 Last administered on 09/25/16 06:26; Admin Dose 1 MG; Start 09/24/16 at 13:30 Ondansetron HCl (Zofran Inj) 4 mg Q6H PRN IV NAUSEA AND/OR VOMITING Last administered on 09/26/16 07:59; Admin Dose 4 MG; Start 09/24/16 at 13:30 Bisacodyl (Dulcolax Supp) 10 mg Q12H PRN [place] CONSTIPATION; Start 09/24/16 at 13: 30 Magnesium Hydroxide (Milk Of Mag) 30 ml BID PRN PO CONSTIPATION; Start at 13:30 Sodium Biphosphate/ Sodium Phosphate (Fleet Enema) 133 ml DAILY PRN [place] CONSTIPATION; Start 09/24/16 at 13:30 Docusate Sodium (Colace) 100 mg BID PO Last administered on 09/26/16 07:56; Admin Dose 100 MG; Start 09/24/16 at 21:00 Diphenhydramine HCl (Benadryl) 25 mg Q6H PRN PO PRURITUS Last administered on 22:53; Admin Dose 25 MG; Start 09/24/16 at 13:30 Aspirin (Ecotrin) 325 mg BID PO Last administered on 09/26/16 07:56; Admin Dose 325 MG; Start 09/25/16 at 09:00 Pantoprazole (Protonix Tab) 40 mg BID@18 PO Last administered on 09/26/16 06:14; Admin Dose 40 MG; Start 09/24/16 at 18:00 Pregabalin (Lyrica) 50 mg BID PO Last administered on 09/26/16 07:55; Admin Dose 50 MG; Start 09/24/16 at 21:00 Clonazepam (Klonopin) 2 mg BID PRN PO ANXIETY Last administered on 09/25/16 21 :00; Admin Dose 2 MG; Start 09/24/16 at 17:00 Ramelteon (Rozerem) 8 mg QHS PO ; Start 09/25/16 at 21:00; Status UNV Levetiracetam (Keppra) 750 mg BID PO Last administered on 09/26/16 07:56; Admin Dose 750 MG; Start 09/25/16 at 21:00 Levetiracetam (Keppra) 500 mg BID PO Last administered on 09/26/16 07:56; Admin Dose 500 MG; Start 09/25/16 at 21:00 Miscellaneous Information (*Order Clarification Bulletin) MEDICATION REQUIRES CLARIFICATI... Q8H XX ; Start 09/25/16 at 12:00 Assessment/Plan Chief Complaint/Hosp Course 71y/o male pmh BPH, migraines, sz d/o, DAYA s/p L TKA 09/24 Problems: Additional Assessment/Plan A/P: #s/p L TKA -ASA 325 BID -PT -pain management per ortho #BPH-\ -finasteride -flowmax #sz d/o -keppra 1250 bid #anxiety d/0 -klonopin #DAYA -cpap #migraines -home meds CHANTELL ANAYA MD September 26, 2016 16:00
[2016-09-26 19:50] VITALS: BP 131/65; RESP 20
[2016-09-26] MEDS: TAMSULOSIN (SR) 0.4 MG CAP PO SCH (21:00)
[2016-09-26] MEDS: clonAZEPAM 0.5 MG TAB PO PRN (21:06)
[2016-09-27] MEDS: oxyCODONE 5 MG TAB PO PRN ×6 (00:25→21:57)
[2016-09-27] MEDS: [UNRECOGNIZED DRUG - REMARK] XX SCH ×3 (04:00→20:00)
[2016-09-27] MEDS: LACTATED RINGER'S 1,000 ML IV SCH ×4 (05:02→21:02)
[2016-09-27] MEDS: PANTOPRAZOLE (EC) 40 MG TAB PO SCH ×2 (05:30→17:41)
[2016-09-27 05:43] LABS: HEMATOCRIT 31.8 % (42.0-52.0); HEMOGLOBIN 10.5 g/dl (14.0-18.0)
[2016-09-27] MEDS: traMADol 50 MG TAB PO SCH ×2 (06:00)
[2016-09-27 06:06] LABS: CALCIUM 8.2 mg/dl (8.4-10.2); CREATININE 0.88 mg/dl (0.61-1.24); POTASSIUM 3.6 mmol/L (3.5-5.1)
[2016-09-27 07:45] VITALS: BP 129/70; RESP 19
[2016-09-27] MEDS: DULOXETINE 30 MG CAP DR PO SCH (09:09)
[2016-09-27] MEDS: DOCUSATE SODIUM 100 MG CAP PO SCH ×2 (09:09→20:32)
[2016-09-27] MEDS: ASPIRIN (EC) 325 MG TAB PO SCH ×2 (09:09→20:32)
[2016-09-27] MEDS: FINASTERIDE 5 MG TAB PO SCH (09:10)
[2016-09-27] MEDS: PREGABALIN 50 MG CAP PO SCH ×2 (09:10→20:40)
[2016-09-27] MEDS: LEVETIRACETAM 750 MG TAB PO SCH ×2 (09:10→20:32)
[2016-09-27] MEDS: LEVETIRACETAM 500 MG TAB PO SCH ×2 (09:10→20:32)
--- NOTE | 2016-09-27 12:10 | PN ---
Date/Time of Note Date/Time of Note DATE: 09/27/16 TIME: 12:09 Assessment/Plan Lines/Catheters IV Catheter Type (from Nrsg): Saline Lock Pabon in Place (from Nrsg): No Assessment/Plan Assessment/Plan POD # 3. Stable. -Continue PO pain meds -OOB with PT -Ice and elevation -E.C. ASA 325 mg po bid plus bilateral LE SCDs -D/C planning for transfer to [facility] tomorrow Subjective 24 Hr Interval Summary Having some pain still. Wants to go to SNF tomorrow as opposed to home. Exam/Review of Systems Vital Signs Vitals Vital Signs Date Time Temp Pulse Resp B/P Pulse Ox O2 Delivery O2 Flow Rate FiO2 09/27/16 07:45 98.0 79 19 129/70 98 09/24/16 17:30 Nasal Cannula 2.0 Intake and Output 09/26/16 09/26/16 09/27/16 15:00 23:00 07:00 Intake Total 2740 ml 400 ml Output Total 2790 ml 780 ml Balance -50 ml -380 ml Exam Free Text/Dictation Dressing dry Incision clean, dry, and intact without redness or drainage 09/11 Tibialis Anterior, EHL, Gastroc Soleus, Peroneals Normal sensation Palpable DP/PT, CR < 2 Sec No distal edema Results Result Diagram: 09/27/16 0500 09/27/16 0500 LINA SPANN MD September 27, 2016 12:10
--- NOTE | 2016-09-27 14:13 | CONS ---
Date/Time of Note Date/Time of Note DATE: 09/27/16 TIME: 14:11 Consult Date/Type/Reason Admit Date/Time September 24, 2016 at 07:33 Initial Consult Date 09/24/16 Type of Consultation: Medicine Reason for Consultation Migraines, Sz d/o Subjective Patient slowly progressing with PT. Pain is limiting him. Denies fevers, chills , nausea, vomiting, diarrhea, constipation, chest pain, sob, cough, dysuria. Objective Vital Signs Date Time Temp Pulse Resp B/P Pulse Ox O2 Delivery O2 Flow Rate FiO2 09/27/16 07:45 98.0 79 19 129/70 98 09/24/16 17:30 Nasal Cannula 2.0 Intake and Output 09/26/16 09/26/16 09/27/16 15:00 23:00 07:00 Intake Total 2740 ml 400 ml Output Total 2790 ml 780 ml Balance -50 ml -380 ml Exam Gen-NAD HEENT-op clear, mmm, CV-rrr, nml s1/s2, no m/r/g Pulm-CTAB, no w/r/r Abd-soft, nt/nd, +bs Ext-no c/c/e Results/Medications Result Diagram: 09/27/16 0500 09/27/16 0500 Results 24 hrs Laboratory Tests Test 09/27/16 05:00 Hemoglobin 10.5 L Hematocrit 31.8 L Sodium Level 137 Potassium Level 3.6 Chloride Level 102 Carbon Dioxide Level 32 H Anion Gap 7 L Blood Urea Nitrogen 9 Creatinine 0.88 Glucose Level 101 Calcium Level 8.2 L Medications Current Medications Miscellaneous Information 1 ea NOTE XX ; Start 09/24/16 at 12:30; Stop 09/28/16 at 12:29 Duloxetine HCl (Cymbalta) 60 mg QAM PO Last administered on 09/27/16 09:09; Admin Dose 60 MG; Start 09/25/16 at 09:00 Finasteride (Proscar) 5 mg DAILY PO Last administered on 09/27/16 09:10; Admin Dose 5 MG; Start 09/25/16 at 09:00 Tamsulosin HCl 0.4 mg 0.4 mg HS PO Last administered on 09/26/16 21:00; Admin Dose 0.4 MG; Start 09/24/16 at 21:00 Lactated Ringer's (Lr) 1,000 ml @ 125 mls/hr Q8H IV Last administered on 05:34; Admin Dose 125 MLS/HR; Start 09/24/16 at 13:02 Oxycodone HCl (Roxicodone) 5 mg Q4H PRN PO PAIN LEVEL 1-3; Start 09/24/16 at 13 :30 Oxycodone HCl (Roxicodone) 10 mg Q4H PRN PO PAIN LEVEL 4-7 Last administered on 09/27/16 13:28; Admin Dose 10 MG; Start 09/24/16 at 13:30 Hydromorphone HCl (Dilaudid) 1 mg Q3H PRN IV PAIN LEVEL 8-10 Last administered on 09/25/16 06:26; Admin Dose 1 MG; Start 09/24/16 at 13:30 Ondansetron HCl (Zofran Inj) 4 mg Q6H PRN IV NAUSEA AND/OR VOMITING Last administered on 09/26/16 07:59; Admin Dose 4 MG; Start 09/24/16 at 13:30 Bisacodyl (Dulcolax Supp) 10 mg Q12H PRN [place] CONSTIPATION; Start 09/24/16 at 13: 30 Magnesium Hydroxide (Milk Of Mag) 30 ml BID PRN PO CONSTIPATION; Start at 13:30 Sodium Biphosphate/ Sodium Phosphate (Fleet Enema) 133 ml DAILY PRN [place] CONSTIPATION; Start 09/24/16 at 13:30 Docusate Sodium (Colace) 100 mg BID PO Last administered on 09/27/16 09:09; Admin Dose 100 MG; Start 09/24/16 at 21:00 Diphenhydramine HCl (Benadryl) 25 mg Q6H PRN PO PRURITUS Last administered on 22:53; Admin Dose 25 MG; Start 09/24/16 at 13:30 Aspirin (Ecotrin) 325 mg BID PO Last administered on 09/27/16 09:09; Admin Dose 325 MG; Start 09/25/16 at 09:00 Pantoprazole (Protonix Tab) 40 mg BID@18 PO Last administered on 09/27/16 05:30; Admin Dose 40 MG; Start 09/24/16 at 18:00 Pregabalin (Lyrica) 50 mg BID PO Last administered on 09/27/16 09:10; Admin Dose 50 MG; Start 09/24/16 at 21:00 Clonazepam (Klonopin) 2 mg BID PRN PO ANXIETY Last administered on 09/26/16 21 :06; Admin Dose 2 MG; Start 09/24/16 at 17:00 Ramelteon (Rozerem) 8 mg QHS PO ; Start 09/25/16 at 21:00; Status UNV Levetiracetam (Keppra) 750 mg BID PO Last administered on 09/27/16 09:10; Admin Dose 750 MG; Start 09/25/16 at 21:00 Levetiracetam (Keppra) 500 mg BID PO Last administered on 09/27/16 09:10; Admin Dose 500 MG; Start 09/25/16 at 21:00 Miscellaneous Information (*Order Clarification Bulletin) MEDICATION REQUIRES CLARIFICATI... Q8H XX ; Start 09/25/16 at 12:00 Assessment/Plan Chief Complaint/Hosp Course 71y/o male pmh BPH, migraines, sz d/o, DAYA s/p L TKA 09/24 Problems: Additional Assessment/Plan A/P: #s/p L TKA -ASA 325 BID -PT -pain management per ortho #BPH-\ -finasteride -flowmax #sz d/o -keppra 1250 bid #anxiety d/0 -klonopin #DAYA -cpap #migraines -home meds Dispo: if h/h stable and no acute issues, medically cleared for SNF discharge for PT tomorrow CHANTELL ANAYA MD September 27, 2016 14:13
[2016-09-27 20:00] VITALS: BP 134/77; PULSE 83; RESP 20
[2016-09-27] MEDS: TAMSULOSIN (SR) 0.4 MG CAP PO SCH (20:32)
[2016-09-28] MEDS: oxyCODONE 5 MG TAB PO PRN ×4 (02:42→13:40)
[2016-09-28] MEDS: [UNRECOGNIZED DRUG - REMARK] XX SCH ×2 (02:52→12:00)
[2016-09-28] MEDS: LACTATED RINGER'S 1,000 ML IV SCH ×2 (03:51→12:15)
[2016-09-28] MEDS: PANTOPRAZOLE (EC) 40 MG TAB PO SCH (05:55)
[2016-09-28 06:03] LABS: HEMATOCRIT 31.4 % (42.0-52.0); HEMOGLOBIN 10.6 g/dl (14.0-18.0)
[2016-09-28 06:52] LABS: POTASSIUM 3.3 mmol/L (3.5-5.1)
[2016-09-28 06:54] LABS: CREATININE 0.84 mg/dl (0.61-1.24)
[2016-09-28 06:55] LABS: CALCIUM 8.3 mg/dl (8.4-10.2)
[2016-09-28 07:58] VITALS: BP 131/61; RESP 19
[2016-09-28] MEDS ORDERED: POTASSIUM CHLORIDE (SR) 20 MEQ TAB PO STA (08:07)
--- NOTE | 2016-09-28 08:13 | CONS ---
Date/Time of Note Date/Time of Note DATE: 09/28/16 TIME: 08:11 Assessment/Plan Assessment/Plan Additional Assessment/Plan 1. Stable postop left knee replacement. 2. History of seizure disorder, med rev 3. History of prostatism, Asx 4. Hx sick sinus syndrome and s/p pacemaker placement 5. Hypokalemia, will replete Consultation Date/Type/Reason Admit Date/Time September 24, 2016 at 07:33 Type of Consultation: Medicine Detailed Summary Respiratory: No cough, No shortness of breath Cardiovascular: No chest pain Gastrointestinal: no complaints Genitourinary: no complaints Musculoskeletal: bone/joint pain (mild-mod left knee pain) Exam/Review of Systems Vital Signs Vitals Vital Signs Date Time Temp Pulse Resp B/P Pulse Ox O2 Delivery O2 Flow Rate FiO2 09/28/16 07:58 98.0 77 19 131/61 98 09/24/16 17:30 Nasal Cannula 2.0 Intake and Output 09/27/16 09/27/16 09/28/16 15:00 23:00 07:00 Intake Total 700 ml 800 ml Output Total 700 ml 1300 ml Balance 0 ml -500 ml Exam Neck: No jvd Respiratory: clear to auscultation Cardiovascular: regular rate and rhythm Gastrointestinal: soft Extremities: No edema (and no calf tend) Results Result Diagram: 09/28/16 0447 09/28/16446 Results 24 hrs Laboratory Tests Test 09/28/16 04:47 Hemoglobin 10.6 L Hematocrit 31.4 L Sodium Level 138 Potassium Level 3.3 L Chloride Level 100 Carbon Dioxide Level 29 Anion Gap 12 Blood Urea Nitrogen 9 Creatinine 0.84 Glucose Level 96 Calcium Level 8.3 L Medications Medications Current Medications Miscellaneous Information 1 ea NOTE XX ; Start 09/24/16 at 12:30; Stop 09/28/16 at 12:29 Duloxetine HCl (Cymbalta) 60 mg QAM PO Last administered on 09/27/16 09:09; Admin Dose 60 MG; Start 09/25/16 at 09:00 Finasteride (Proscar) 5 mg DAILY PO Last administered on 09/27/16 09:10; Admin Dose 5 MG; Start 09/25/16 at 09:00 Tamsulosin HCl 0.4 mg 0.4 mg HS PO Last administered on 09/27/16 20:32; Admin Dose 0.4 MG; Start 09/24/16 at 21:00 Lactated Ringer's (Lr) 1,000 ml @ 125 mls/hr Q8H IV Last administered on 05:34; Admin Dose 125 MLS/HR; Start 09/24/16 at 13:02 Oxycodone HCl (Roxicodone) 5 mg Q4H PRN PO PAIN LEVEL 1-3; Start 09/24/16 at 13 :30 Oxycodone HCl (Roxicodone) 10 mg Q4H PRN PO PAIN LEVEL 4-7 Last administered on 09/28/16 06:33; Admin Dose 10 MG; Start 09/24/16 at 13:30 Hydromorphone HCl (Dilaudid) 1 mg Q3H PRN IV PAIN LEVEL 8-10 Last administered on 09/25/16 06:26; Admin Dose 1 MG; Start 09/24/16 at 13:30 Ondansetron HCl (Zofran Inj) 4 mg Q6H PRN IV NAUSEA AND/OR VOMITING Last administered on 09/26/16 07:59; Admin Dose 4 MG; Start 09/24/16 at 13:30 Bisacodyl (Dulcolax Supp) 10 mg Q12H PRN [place] CONSTIPATION; Start 09/24/16 at 13: 30 Magnesium Hydroxide (Milk Of Mag) 30 ml BID PRN PO CONSTIPATION; Start at 13:30 Sodium Biphosphate/ Sodium Phosphate (Fleet Enema) 133 ml DAILY PRN [place] CONSTIPATION; Start 09/24/16 at 13:30 Docusate Sodium (Colace) 100 mg BID PO Last administered on 09/27/16 20:32; Admin Dose 100 MG; Start 09/24/16 at 21:00 Diphenhydramine HCl (Benadryl) 25 mg Q6H PRN PO PRURITUS Last administered on 22:53; Admin Dose 25 MG; Start 09/24/16 at 13:30 Aspirin (Ecotrin) 325 mg BID PO Last administered on 09/27/16 20:32; Admin Dose 325 MG; Start 09/25/16 at 09:00 Pantoprazole (Protonix Tab) 40 mg BID@18 PO Last administered on 5/22/17at 05:55; Admin Dose 40 MG; Start 09/24/16 at 18:00 Pregabalin (Lyrica) 50 mg BID PO Last administered on 09/27/16 20:40; Admin Dose 50 MG; Start 09/24/16 at 21:00 Clonazepam (Klonopin) 2 mg BID PRN PO ANXIETY Last administered on 09/26/16 21 :06; Admin Dose 2 MG; Start 09/24/16 at 17:00 Ramelteon (Rozerem) 8 mg QHS PO ; Start 09/25/16 at 21:00; Status UNV Levetiracetam (Keppra) 750 mg BID PO Last administered on 09/27/16 20:32; Admin Dose 750 MG; Start 09/25/16 at 21:00 Levetiracetam (Keppra) 500 mg BID PO Last administered on 09/27/16 20:32; Admin Dose 500 MG; Start 09/25/16 at 21:00 Miscellaneous Information (*Order Clarification Bulletin) MEDICATION REQUIRES CLARIFICATI... Q8H XX ; Start 09/25/16 at 12:00 ДМИТРИЙ MCCARTNEY MD September 28, 2016 08:13
[2016-09-28] MEDS: DOCUSATE SODIUM 100 MG CAP PO SCH (08:33)
[2016-09-28] MEDS: LEVETIRACETAM 750 MG TAB PO SCH (08:34)
[2016-09-28] MEDS: ASPIRIN (EC) 325 MG TAB PO SCH (08:34)
[2016-09-28] MEDS: PREGABALIN 50 MG CAP PO SCH (08:34)
[2016-09-28] MEDS: DULOXETINE 30 MG CAP DR PO SCH (08:34)
[2016-09-28] MEDS: FINASTERIDE 5 MG TAB PO SCH (08:35)
[2016-09-28] MEDS: LEVETIRACETAM 500 MG TAB PO SCH (08:35)
[2016-09-28] MEDS ORDERED: CEPH500C PO (08:55)
--- NOTE | 2016-09-29 03:49 | DS ---
DATE OF ADMISSION: 09/24/2016 DATE OF DISCHARGE: 09/28/2016 CONDITION ON DISCHARGE: Stable. ADMITTING DIAGNOSIS: Left knee pain secondary to osteoarthritis. DISCHARGE DIAGNOSIS: Status post left total knee arthroplasty. PROCEDURE PERFORMED: Left total knee arthroplasty. HOSPITAL COURSE: This is a 71-year-old male who was seen in the clinic initially complaining of right knee pain. He had undergone conservative modalities unsuccessfully and it was thought he would benefit from a left total knee arthroplasty. On 09/24/2016, the patient was admitted and taken to the operating room where he underwent a left total knee arthroplasty. There were no intraoperative complications. The patient tolerated the procedure well. He was taken to the recovery room in stable condition. Pain was well controlled with oral pain medication. He was started on aspirin and SCDs for DVT prophylaxis. He remained hemodynamically stable and neurovascularly intact throughout his hospital stay. He began physical therapy on postoperative day 1 and requested to be transferred to the [facility]. He was deemed stable for transfer on postoperative day #4. Prior to transfer, the incision was inspected and noted to be clean, dry and intact. Dressing changes were done prior to the patient going to the [facility]. LABORATORY ANALYSIS: Hemoglobin 10.6, hematocrit 31.4. Chemistry panel was within normal limits. DISCHARGE MEDICATIONS: 1. Oxycodone 5 mg. 2. Tramadol 50 mg. 3. Lyrica 50 mg. 4. Protonix 40 5. Aspirin 325 mg. 6. Keflex 500 mg. 7. In addition, the patient should resume all of his normal home medications. DISCHARGE INSTRUCTIONS: The patient will be transferred to the [facility] in stable condition. He is to resume a normal diet. Activity includes weightbearing as tolerated on the left lower extremity. He will begin physical therapy at the [facility]. He will be discharged and transferred with the medications noted above and is to resume all his normal home medications. The patient is to call the office or go to the emergency room for any concerns including increased redness, swelling, drainage, fever or any concern regarding the operation or site of incision. FOLLOWUP: The patient is to follow up in the office on 10/07/2016. Dictated By: YADI HOUSTON/CARLO Conf#: [id number] DID#: [id number]
== END 2016-09-28 14:00 | DRG 470 ==
LOC: REC 07:33 → MS1 14:39
PROVIDERS: ADMIT Orthopaedic Surgery; ATTEND Orthopaedic Surgery
PROC: 0SRD0J9 Replacement of Left Knee Joint with Synthetic Substitute, Cemented, Open Approach (ICD-10-PCS; principal; 2016-09-24 10:00)
DX: M17.12 Unilateral primary osteoarthritis, left knee (principal); G40.909 Epilepsy, unspecified, not intractable, without status epilepticus; E87.6 Hypokalemia; E66.9 Obesity, unspecified; Z68.31 Body mass index [BMI] 31.0-31.9, adult; G47.30 Sleep apnea, unspecified; N40.0 Benign prostatic hyperplasia without lower urinary tract symptoms
CPT/HCPCS: 73560; 80048; 81001; 81003; 83735; 84100; 85014; 85018; 86850; 86900; 86901; 86920; 87081; 87086; 88304; 88311; 97116; 97162; 97165; 97530; C1776; C9290; J0171; J0690; J0697; J0735; J1100; J1170; J1885; J2250; J2274; J2405; J2765; J3010; J3370; J7120

== ENCOUNTER → 2016-10-07 | Outpatient (CLI) | payer MEDICARE, BC ==
[~2016-10-07] MED LIST changes: +ASPI325T32 PO; -ASPI81TA3 PO; +CEPH500C PO; -DEXAMETHASONE 4 MG/ML 1 ML INJ ONE; -DICL100G37 TOP; -GLUC500T11 PO; +OXYC-481 PO; +PANT40TA4 PO; -PRED10TA PO; +PREG50CA PO; +TRAM50TA2 PO
--- NOTE | 2016-10-07 12:15 | HKNOTE ---
DATE OF SERVICE: 10/07/2016 INTERVAL HISTORY: The patient presents today for his first postoperative evaluation. 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 He is currently at [facility] and doing well overall. He denies any fevers or chills. He is complaining of some soreness to the left knee, but denies any significant pain. He is progressing nicely with physical therapy. He is taking aspirin twice daily for DVT prophylaxis. The patient would like to go home from [facility] and begin home health physical therapy. He presents today for his first postoperative evaluation. PHYSICAL EXAMINATION: Today, he is alert and oriented x4 and in no acute distress. Exam of the left knee demonstrates mild soft tissue swelling. There is no erythema or warmth noted. Michelle are in place. Range of motion is 0 to 90 degrees. Varus and valgus forces are stable. Homans sign is negative. Compartments are soft. He is neurovascularly intact distally. . IMAGING: X-rays done at an outside facility demonstrate good anatomic alignment with no fractures or dislocations identified. ASSESSMENT: Ten days status post left total knee arthroplasty, doing well. PLAN: The michelle were removed today and Steri-Strips were applied. He is to continue physical therapy at [facility]. Additionally, he is continue aspirin twice daily for DVT prophylaxis. Given his clinical state, the patient is stable for discharge home from [facility] where he can begin physical therapy with home health. We will see him back in 4 weeks for repeat evaluation. The patient is to call the office in the meantime if he has any concerns. Dictated By: YADI HOUSTON/CARLO Conf#: [id number] DID#: [id number] [id number]
== END | disposition home or self-care (01) ==
LOC: HKI 09:52
PROVIDERS: ATTEND Orthopaedic Surgery
DX: Z47.1 Aftercare following joint replacement surgery (principal); Z96.652 Presence of left artificial knee joint

== ENCOUNTER → 2016-11-04 | Outpatient (CLI) | payer MEDICARE, BC | END | disposition home or self-care (01) | LOC: HKI 10:06 | PROVIDERS: ATTEND Orthopaedic Surgery | DX: Z47.1 Aftercare following joint replacement surgery (principal); Z96.652 Presence of left artificial knee joint; M17.12 Unilateral primary osteoarthritis, left knee; G40.909 Epilepsy, unspecified, not intractable, without status epilepticus; G47.30 Sleep apnea, unspecified; I95.1 Orthostatic hypotension; I49.9 Cardiac arrhythmia, unspecified; Z95.0 Presence of cardiac pacemaker ==

== ENCOUNTER → 2016-12-23 | Outpatient (CLI) | payer MEDICARE, BC ==
[~2016-12-23] MED LIST changes: +LEVE500S8 PO; -LEVE500S9 PO
--- NOTE | 2016-12-23 10:14 | RADRPT ---
PROCEDURE: LEFT knee x-ray CLINICAL INDICATION: PAIN TECHNIQUE: AP, lateral, and sunrise views of the knee were obtained. COMPARISON: Plain radiographs of the left knee from 09/24/2016 FINDINGS: No acute fracture or dislocation is seen. There is normal mineralization. A total left knee prosthesis is again noted in near anatomic alignment without evidence of hardware loosening.. There is no joint effusion. There is no significant soft tissue swelling. IMPRESSION: Redemonstration of a total left knee prosthesis in near anatomic alignment. RPTAT: EE Physician Arpan Date Time Electronically viewed and signed by Physician Arpan on 12/23/2016 09:17 /
== END | disposition home or self-care (01) ==
LOC: HKI 08:36
PROVIDERS: ATTEND Orthopaedic Surgery
DX: Z47.1 Aftercare following joint replacement surgery (principal); M17.12 Unilateral primary osteoarthritis, left knee; Z96.652 Presence of left artificial knee joint